=== PATIENT | male | born 1970 | race Caucasian/White ===

== ENCOUNTER 2021-12-05 06:04 | Day surgery (SDC) | payer OTHER ==
[~2021-12-05] VITALS: Ht 182.9 cm; Wt 99.0 kg
[~2021-12-05 06:04] MED LIST: PREDNISONE20 MG PO; PROVENTIL HFA6.7 GM INH; ROBITUSSIN COU237 M2 PO
--- NOTE | 2021-12-05 09:29 | NUR ---
12/05/21 0929 Comfort Pineda 0904 PT ARRIVED IN PACU SLEEPY WITH NO C/O'S. ABD SOFT. 0915 SITTING UP IN BED TALKING TO STAFF. 924 DC INSTRUCTIONS GIVEN. ALL QUESTIONS ANSWERED.
--- NOTE | 2021-12-05 16:33 | OR ---
[facility] [address] [place], [place] [address] Signed DATE OF OPERATION: 12/05/2021 SURGEON: Trace Grider MD PREOPERATIVE DIAGNOSIS: Screening. POSTOPERATIVE DIAGNOSES: 1. A 12-15 mm sessile jesica-appendiceal orifice of polyp. 2. A 4 mm polyp on the ileocecal valve. 3. A 4 mm polyp at 10 cm. 4. Moderate internal hemorrhoid x1. PROCEDURES: Colonoscopy, snare polypectomy, and hot biopsy. INDICATIONS: Sally is a 51-year-old gentleman, asked to see me for his initial screening colonoscopy. Apparently, he was able to come last year. He said he is adopted, therefore he has no knowledge of his family history. He has no lower GI complaints. He said in the past he did quite a bit of methamphetamines, drinking cigarettes. He said he has quit all that and feels much better. He stays at home and takes care of the grand children in his neighbor's yard. Overall, he said he is feeling much better. In the office, I gave Sally a pamphlet on colonoscopy. We looked at that together in detail. He understands there is risk including, but not limited to gas bloating, crampy abdominal pain, bleeding, perforation requiring surgery, and missed diagnosis. We also discussed the need for IV conscious sedation. He had expressed understanding and wished to proceed. DESCRIPTION OF PROCEDURE: Sally was taken into our endoscopy suite and placed in the left lateral decubitus position. He was given a total of 10 mg of Versed and 200 mcg of fentanyl to cover the case. Even then he was frequently awake, moving and grasping around in the bed. Fortunately, it was fairly easy to pass the colonoscope. Nevertheless, it would be much better benefit with propofol infusion in the future. A digital rectal exam had been performed and he had good sphincter tone. Not much in the way of any external hemorrhoids. Prostate just a little indurated. The adult colonoscope had been introduced and advanced under direct visualization of camera. Again, it took additional doses of Versed and fentanyl to get around to the cecum itself. Fortunately, his prep was quite good. He had a fairly large 12-15 mm sessile polyp involving the appendiceal Electronically Signed By: TRACE GRIDER MD 12/05/21 1633 PATIENT NAME: SALLY REYES OPERATIVE REPORT DATE OF : 70 REPORT #: [id number] PHYSICIAN: TRACE GRIDER MD PCP: ALLEGRA MAHMOOD MD REPORT IS CONFIDENTIAL AND NOT TO BE RELEASED WITHOUT AUTHORIZATION [facility] [address] [place], [place] [address] Signed orifice. We used the snare. We took up at least 2/3 of the center of that lesion. There was still some polyp around the circumference of that area. He also has another polyp probably 4-5 mm in diameter on the ileocecal valve. We did not feel it was safe to continue cauterizing around the appendiceal orifice and he was using a large amount of Versed and fentanyl and still moving around. We felt it would be much safer to come back after this has healed with the help of propofol infusion. We took pictures throughout for photodocumentation. The scope was then slowly withdrawn. We found no diverticulosis. He had one tiny 4 mm polyp at 10 cm in the rectum. It was easily removed with the help of hot biopsy forceps. The scope had been retroflexed and we can see he has at least one moderate sized internal hemorrhoid columns. After this, the gas was suctioned out the colonoscope removed. Sally was awake and talking to us by the time we finished the colonoscopy and was leaving the room. Nevertheless, he tolerated the procedure well overall. RECOMMENDATIONS: I will see Sally back in my office in 7 to 14 days to review his results. He needs a repeat colonoscopy with monitored anesthesia care and propofol infusion to help remove the remainder of the periappendiceal polyp along with the small polyp on the ileocecal valve. Trace Grider MD [facility] /[id number] cc: MD Allegra Bond MD Chart Copies: TRACE GRIDER MD Electronically Signed By: TRACE GRIDER MD 12/05/21 1633 PATIENT NAME: SALLY REYES OPERATIVE REPORT DATE OF : 70 REPORT #: [id number] PHYSICIAN: TRACE GRIDER MD PCP: ALLEGRA MAHMOOD MD REPORT IS CONFIDENTIAL AND NOT TO BE RELEASED WITHOUT AUTHORIZATION [address] [address] Signed ALLEGRA MAHMOOD MD ~ Electronically Signed By: TRACE GRIDER MD 12/05/21 1633 PATIENT NAME: SALLY REYES OPERATIVE REPORT DATE OF : 70 REPORT #: [id number] PHYSICIAN: TRACE GRIDER MD PCP: ALLEGRA MAHMOOD MD REPORT IS CONFIDENTIAL AND NOT TO BE RELEASED WITHOUT AUTHORIZATION
--- NOTE | 2021-12-13 13:53 | PATH ---
[facility] [address] [place], [place] [address] Signed SPECIMEN(S): A COLON POLYP SPECIMEN(S): B POLYP BASE OF CECUM/APPENDICEAL ORIFICE SPECIMEN SOURCE: A. COLON POLYP B. POLYP BASE OF CECUM/APPENDICEAL ORIFICE CLINICAL HISTORY: Initial screening colonoscopy. Colon polyp, rectal polyp, internal hemorrhoids. FINAL PATHOLOGIC DIAGNOSIS: A. Colon, base of cecum/appendiceal orifice polyp, polypectomy: - Fragments of tubular adenoma. - Negative for high-grade dysplasia or invasive carcinoma. B. Rectum, polyp, polypectomy: - Cauterized colonic mucosa with no histopathologic abnormality. - Negative for dysplasia or malignancy. COMMENT: Part A was reviewed in consultation with another member of our pathology staff, who agrees with the diagnosis (AMB). NAL:cml:C2NR MICROSCOPIC EXAMINATION: Histologic sections of all submitted blocks are examined by light microscopy. These findings, together with the gross examination, support the pathologic diagnosis. GROSS DESCRIPTION: Two specimens are received in two containers, labeled "Reyes, T." A. The specimen, labeled "Reyes, T, 1," and designated on the requisition "colon polyp," is received in formalin and consists of multiple flores soft tissue fragments that measure 0.1-0.7 cm in greatest dimension. The specimen is entirely submitted in cassettes (A1-A2). B. The specimen, labeled "Reyes, T, 2," and designated on the requisition "rectum," is received in formalin and consists of one flores soft tissue fragment that measures 0.4 cm in greatest dimension. The specimen is entirely submitted in cassette (B1). FB (under the direct supervision of a pathologist) The Gross Description was prepared using a voice recognition system. The report PATIENT NAME: SALLY REYES PATHOLOGY DATE OF : 70 REPORT #: [id number] PHYSICIAN: ALAYNA PATHOLOGY PCP: ALLEGRA MAHMOOD MD REPORT IS CONFIDENTIAL AND NOT TO BE RELEASED WITHOUT AUTHORIZATION [facility] [address] [place] [address] Signed was reviewed for accuracy; however, sound-alike word errors, addition and/or deletions may occur. If there is any question about this report, please contact Client Services. PERFORMING LABORATORY: The technical component was performed by [facility], [address] [place] [address] (CLIA# [id number]). Professional interpretation was performed by [facility], [address] [address] (CLIA# [id number]). Diagnostician: Krista Stroud MD Pathologist Electronically Signed 12/13/2021 Copies: ~ PATIENT NAME: SALLY REYES PATHOLOGY DATE OF : 70 REPORT #: [id number] PHYSICIAN: ALAYNA PATHOLOGY PCP: ALLEGRA MAHMOOD MD REPORT IS CONFIDENTIAL AND NOT TO BE RELEASED WITHOUT AUTHORIZATION
== END 2021-12-05 09:32 | disposition home or self-care (01) ==
LOC: OPS 06:04 → DS 06:04 → OPS 08:15
PROVIDERS: ATTEND Colon & Rectal Surgery
PROC: 0DBP8ZX Excision of Rectum, Via Natural or Artificial Opening Endoscopic, Diagnostic (ICD-10-PCS; 2021-12-05)
PROC: 0DBH8ZX Excision of Cecum, Via Natural or Artificial Opening Endoscopic, Diagnostic (ICD-10-PCS; principal; 2021-12-05 08:15)
DX: Z12.11 Encounter for screening for malignant neoplasm of colon (principal); F41.9 Anxiety disorder, unspecified; D12.0 Benign neoplasm of cecum; K62.1 Rectal polyp; K64.8 Other hemorrhoids; Z87.891 Personal history of nicotine dependence; Z20.822 Contact with and (suspected) exposure to COVID-19
CPT/HCPCS: 87502; 99153; C9803; G0500; J2250; J3010; J7121; U0003

== ENCOUNTER 2022-02-16 06:50 | Day surgery (SDC) | payer OTHER ==
[~2022-02-16] VITALS: Ht 175.3 cm; Wt 101.8 kg
--- NOTE | 2022-02-16 08:55 | NUR ---
02/16/22 0855 Yordy Rodney CRNA MEDICATING PATIENT WITH CLEAR FLUID DURING REPORT FOR LOW BP
--- NOTE | 2022-02-16 10:14 | NUR ---
PT IS ALERT, ORIENTED AND WILL HAVE AMILY HERE AT [place]. PT HAS HAD PREVIOUS SCOPE, FOLLOW-UP FROM PREVIOUS. PT SEEMS RELAXED, PT REQUESTED PRAYER. WILL FOLLOW NEEDED
--- NOTE | 2022-02-16 11:14 | OR ---
[facility] [address] [place], [place] [address] Signed DATE OF OPERATION: 02/16/2022 SURGEON: rTace Grider MD PREOPERATIVE DIAGNOSIS: Screening. POSTOPERATIVE DIAGNOSES: 1. 4 mm sessile polyp at 8 cm. 2. Shallow linear rectal ulcer at 7 cm. 3. Trilobed 10 mm polyp at the appendiceal orifice (snare/hot biopsy). 4. 6 mm polyp at 32 cm (snare). 5. 5 mm polyp at 24 cm (sigmoid). 6. Minimal internal hemorrhoids. 7. Small inferior prostate nodule. PROCEDURE: Colonoscopy with snare polypectomy and hot biopsy. ESTIMATED BLOOD LOSS: None. INDICATIONS: Sally is a 51-year-old gentleman, asked to see me for his initial screening colonoscopy. He said he is adopted and therefore has no knowledge of his family history. He has no lower GI complaints. This would be his 1st colonoscopy. He said he has drank quite a bit of alcohol in the past along with methamphetamines. He said he quit all that including his cigarettes. He said he feels much better. He has been staying at home to take care of all the grandchildren as well as the neighbor's yard. Overall, he said he is in a much better place. In the office, I gave Sally a brochure on colonoscopy. We reviewed the nature of the test. He understands there is risk including, but not limited to gas bloating, crampy abdominal pain, bleeding, perforation requiring surgery, and missed diagnosis. We also reviewed the need for monitored anesthesia care given his prior history. He had expressed understanding and wished to proceed. PROCEDURE NOTE: Sally was taken into our endoscopy suite and placed in the left lateral decubitus position. He was given monitored anesthesia care with propofol per our nurse cut in station operator. A digital rectal exam was performed. He has good sphincter tone. No Electronically Signed By: TRACE GRIDER MD 02/16/22 1114 PATIENT NAME: SALLY REYES OPERATIVE REPORT DATE OF : 70 REPORT #: [id number] PHYSICIAN: TRACE GRIDER MD PCP: ALLEGRA MAHMOOD MD REPORT IS CONFIDENTIAL AND NOT TO BE RELEASED WITHOUT AUTHORIZATION [facility] [address] [place], [place] [address] Signed external hemorrhoids. His prostate is not overly enlarged, but it is indurated and he feels like he has a nodule on the inferior aspect. Maybe ever so slightly to the left side. After this, the adult colonoscope had been introduced and advanced all around into the cecum under direct visualization of the camera. It took some extra propofol and abdominal compression in order to move the scope directly into the cecum itself. He had a trilobed polypoid lesion at the appendiceal orifice. The inner portion I grabbed with the hot biopsy forceps and destroyed it completely. The other two were next to each other and we brought those off with the snare and suctioned it through the scope. After that, the scope was then slowly withdrawn. We continued to take pictures throughout for photodocumentation. The above-mentioned polyps were also removed with the help of hot biopsy forceps. We did use our snare at 32 cm and suctioned that polyp through the scope. Back in the rectum, he had a linear shallow ulcerated lesion. It seems to be healing. We went ahead and took three cold biopsies along that lesion. No obvious growth. Not sure why that is present. Upon retroflexion of the scope, we could see just minimal internal hemorrhoid tissue. After this, the gas was suctioned out and colonoscope removed. Sally tolerated the procedure quite well. RECOMMENDATIONS: I will see Sally back in my office in 7 to 14 days to review his pathology results. He might consider a short interval followup given the finding at the appendiceal orifice as well as this linear shallow rectal ulcerated lesion in his rectum at around 7 cm. Follow up with prostate exam with primary care provider. Trace Grider MD [facility] /[id number] cc: MD Trace Calvo MD Copies: ALLEGRA MAHMOOD MD Electronically Signed By: TRACE GRIDER MD 02/16/22 1114 PATIENT NAME: SALLY REYES OPERATIVE REPORT DATE OF : 70 REPORT #: [id number] PHYSICIAN: TRACE GRIDER MD PCP: ALLEGRA MAHMOOD MD REPORT IS CONFIDENTIAL AND NOT TO BE RELEASED WITHOUT AUTHORIZATION [address] [address] Signed TRACE GRIDER MD ~ Electronically Signed By: TRACE GRIDER MD 02/16/22 1114 PATIENT NAME: SALLY REYES OPERATIVE REPORT DATE OF : 70 REPORT #: [id number] PHYSICIAN: TRACE GRIDER MD PCP: ALLEGRA MAHMOOD MD REPORT IS CONFIDENTIAL AND NOT TO BE RELEASED WITHOUT AUTHORIZATION
--- NOTE | 2022-02-19 17:05 | PATH ---
[facility] [address] [facility] [place], [place] [address] Signed SPECIMEN(S): A RECTAL POLYP AT 8 CM SPECIMEN(S): B RECTUM AT 7 CM SPECIMEN(S): C APPENDICEAL ORIFICE SPECIMEN(S): D SIGMOID POLYP AT 32 CM SPECIMEN(S): E SIGMOID POLYP AT 24 CM SPECIMEN SOURCE: A. RECTAL POLYP AT 8 CM B. RECTUM AT 7 CM C. APPENDICEAL ORIFICE D. SIGMOID POLYP AT 32 CM E. SIGMOID POLYP AT 24 CM CLINICAL HISTORY: Screening colonoscopy; polyps, rectal lesion (ulcer). FINAL PATHOLOGIC DIAGNOSIS: A. Rectal polyp at 8 cm: - Hyperplastic polyp (1 fragment). B. Rectum at 7 cm: - Hyperplastic polyp (3 fragments) - Incidental submucosal lymphoid aggregate with benign features (1 fragment). C. Appendiceal orifice: - Tubular adenoma with prominent biopsy site changes (see comment). D. Sigmoid polyp at 32 cm: - Tubular adenoma. - Prominent biopsy artifact, (see comment). E. Sigmoid polyp at 24 cm: - Hyperplastic polyp (1 fragment). COMMENT: (Part C) Biopsy related changes limit the evaluation of the mucosa. Biopsy appears to show tubular adenoma with some mixed inflammation. Evaluation for high-grade dysplasia is limited by the biopsy artifact. Several areas are in fact suspicious for high-grade dysplasia, but definitive evaluation is note possible on these fragments. Close clinical follow up and consideration of additional sampling may be considered as indicated. (Part D) Biopsy artifact limits the evaluation of the biopsy for high-grade dysplasia. There is no evidence of malignancy on these sections. As part of [employer]' Quality Improvement Program, this case was PATIENT NAME: SALLY REYES PATHOLOGY DATE OF : 70 REPORT #: [id number] PHYSICIAN: ALAYNA FARRIS PCP: ALLEGRA MAHMOOD MD REPORT IS CONFIDENTIAL AND NOT TO BE RELEASED WITHOUT AUTHORIZATION [facility] [address] [place], [place] [address] Signed reviewed by another member of our pathology staff. JVR:sarahr:C2NR MICROSCOPIC EXAMINATION: Histologic sections of all submitted blocks are examined by light microscopy. These findings, together with the gross examination, support the pathologic diagnosis. GROSS DESCRIPTION: Five specimens are received in five containers, labeled "TJ." A. The specimen, labeled "TJ, rectum polyp at 8 cm," is received in formalin and consists of one flores soft tissue fragment that measures 0.2 cm in greatest dimension. The specimen is entirely submitted in cassette (A1). B. The specimen, labeled "TJ, rectum lesion biopsy at 7 cm," is received in formalin and consists of four flores soft tissue fragments that measure 0.1-0.2 cm in greatest dimension. The specimen is entirely submitted in cassette (B1). C. The specimen, labeled "TJ, appendiceal orifice polyp," is received in formalin and consists of multiple flores soft tissue fragments that measure 2.0 x 1.1 x 0.1 cm in aggregate. The specimen is entirely submitted in cassette (C1). D. The specimen, labeled "TJ, sigmoid colon polyp at 32 cm," is received in formalin and consists of two flores soft tissue fragments that measure 0.1 cm in greatest dimension. The specimen is entirely submitted in cassette (D1). E. The specimen, labeled "TJ, sigmoid colon polyp at 24 cm," is received in formalin and consists of one flores soft tissue fragment that measures 0.2 cm in greatest dimension. The specimen is entirely submitted in cassette (E1). JS (under the direct supervision of a pathologist) The Gross Description was prepared using a voice recognition system. The report was reviewed for accuracy; however, sound-alike word errors, addition and/or deletions may occur. If there is any question about this report, please contact Client Services. PERFORMING LABORATORY: The technical component was performed by [employer], [address] [place] [id number] (CLIA# [id number]). Professional interpretation was performed by [facility], [address] [place] [id number] (CLIA#: [id number]). PATIENT NAME: SALLY REYES PATHOLOGY DATE OF : 70 REPORT #: [id number] PHYSICIAN: ALAYNA FARRIS PCP: ALLEGRA MAHMOOD MD REPORT IS CONFIDENTIAL AND NOT TO BE RELEASED WITHOUT AUTHORIZATION [facility] [address] [place], [place] [address] Signed Diagnostician: Moody Robbins MD Pathologist Electronically Signed 02/19/2022 Copies: ~ PATIENT NAME: SALLY REYES PATHOLOGY DATE OF : 70 REPORT #: [id number] PHYSICIAN: ALAYNA PATHOLOGY PCP: ALLEGRA MAHMOOD MD REPORT IS CONFIDENTIAL AND NOT TO BE RELEASED WITHOUT AUTHORIZATION
== END 2022-02-16 09:30 | disposition home or self-care (01) ==
LOC: DS 06:50 → OPS 06:50 → DS 08:15 → OPS 09:30
PROVIDERS: ATTEND Colon & Rectal Surgery
PROC: 0DBE8ZZ Excision of Large Intestine, Via Natural or Artificial Opening Endoscopic (ICD-10-PCS; 2022-02-16)
PROC: 0DBN8ZZ Excision of Sigmoid Colon, Via Natural or Artificial Opening Endoscopic (ICD-10-PCS; 2022-02-16)
PROC: 0DBE8ZZ Excision of Large Intestine, Via Natural or Artificial Opening Endoscopic (ICD-10-PCS; 2022-02-16)
PROC: 0DBN8ZZ Excision of Sigmoid Colon, Via Natural or Artificial Opening Endoscopic (ICD-10-PCS; principal; 2022-02-16 08:15)
DX: Z12.11 Encounter for screening for malignant neoplasm of colon (principal); K62.6 Ulcer of anus and rectum; K64.8 Other hemorrhoids; N40.2 Nodular prostate without lower urinary tract symptoms; D12.5 Benign neoplasm of sigmoid colon; D12.1 Benign neoplasm of appendix; K62.1 Rectal polyp
CPT/HCPCS: 00812; 88305; J2704; J7121